=== PATIENT | female | born 1980 | race Caucasian/White ===

== ENCOUNTER 2018-01-25 17:11 | Inpatient (IN) | payer OTHER ==
[~2018-01-25] VITALS: Ht 162.6 cm; Wt 38.6 kg
--- NOTE | 2018-01-26 03:45 | NUR ---
INTAKE ASSESSMENT BP: 90/64, HR:94, RR:18, SpO2:96%, T:98.1 Pt is in stable condition and able to be admitted on the unit. Unit protocols regarding vital signs Q4H and medications were explained. Pt verbalized understanding. Will continue admission upon arrival on the unit.
[2018-01-26] MEDS ORDERED: TRAZ-182 PO (03:47)
[2018-01-26] MEDS ORDERED: CLON1TAB5 PO (03:47)
[2018-01-26] MEDS ORDERED: FAMO1TAB29 PO (03:47)
[2018-01-26] MEDS ORDERED: ACETAMINOPHEN 325 MG TABLET PO PRN (04:00)
[2018-01-26] MEDS ORDERED: ONDANSETRON 4 MG/2 ML VIAL IM PRN (04:00)
[2018-01-26] MEDS ORDERED: LORAZEPAM 1 MG TABLET PO PRN ×2 (04:00)
[2018-01-26] MEDS ORDERED: MAGNESIUM HYDROXIDE 30 ML LIQUID UDC PO PRN (04:00)
[2018-01-26] MEDS ORDERED: THIAMINE HCL 200 MG/2 ML VIAL IM ONE (04:00)
[2018-01-26] MEDS ORDERED: LOPERAMIDE HCL 2 MG CAPSULE PO PRN ×2 (04:00)
[2018-01-26] MEDS ORDERED: ONDANSETRON ODT 4 MG TAB.RAPDIS SL PRN (04:00)
[2018-01-26] MEDS ORDERED: diphenhydrAMINE 50 MG CAPSULE PO PRN (04:00)
[2018-01-26] MEDS ORDERED: MAG HYDROX/AL HYDROX/SIMETH 30 ML LIQUID UDC PO PRN (04:00)
[2018-01-26] MEDS ORDERED: LORAZEPAM 2 MG/1 ML VIAL IM PRN (04:00)
[2018-01-26] MEDS ORDERED: DICYCLOMINE HCL 20 MG TABLET PO PRN (04:00)
[2018-01-26 04:04] VITALS: BP 90/64
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
[2018-01-26 05:03] LABS: *URINE HCG, QUAL NEGATIVE (NEGATIVE)
[2018-01-26 05:11] LABS: BASOPHILS % (AUTO) 1.2 % (0.0-2.0); EOSINOPHILS % (AUTO) 0.8 % (0.0-7.0); HEMATOCRIT 39.8 % (31.2-41.9); HEMOGLOBIN 13.3 g/dL (10.9-14.3); LYMPHOCYTES # (AUTO) 1.1 K/uL (20.0-40.0); LYMPHOCYTES % (AUTO) 28.2 % (20.5-51.5); MEAN CORPUSCULAR HEMOGLOBIN 31.5 uug (24.7-32.8); MEAN CORPUSCULAR HGB CONC 34 g/dL (32.3-35.6); MEAN CORPUSCULAR VOLUME 93.9 fL (75.5-95.3); MONOCYTES # (AUTO) 0.5 K/uL (2.0-10.0); MONOCYTES % (AUTO) 12.6 % (0.0-11.0); NEUTROPHILS # (AUTO) 2.3 K/uL (1.8-8.9); NEUTROPHILS % (AUTO) 57.2 % (38.5-71.5); PLATELET COUNT (AUTO) 332 K/uL (179-408); RED BLOOD CELL COUNT(AUTO) 4.24 MIL/uL (3.63-4.92)
[2018-01-26 05:16] LABS: *AMPHETAMINE, URINE POSITIVE (NEGATIVE); *BARBITURATE, URINE NEGATIVE (NEGATIVE); *CANNABINOID, URINE NEGATIVE (NEGATIVE); *COCCAINE, URINE NEGATIVE (NEGATIVE); *OPIATE, URINE NEGATIVE (NEGATIVE); *PHENCYCLIDINE SCREEN,URINE NEGATIVE (NEGATIVE)
[2018-01-26 05:20] LABS: ETHANOL < 3 MG/DL (0-0)
[2018-01-26 05:29] LABS: ALANINE AMINOTRANSFERASE 28 U/L (14-59); ALKALINE PHOSPHATASE 44 U/L (50-136); AMYLASE 86 U/L (25-115); ASPARTATE AMINOTRANSFERASE 29 U/L (15-37); BILIRUBIN,TOTAL 0.5 mg/dL (0.2-1.0); CARBON DIOXIDE 30 mmol/L (21-32); CHLORIDE 98 mmol/L (98-107); CREATININE 0.8 mg/dL (0.6-1.3); GLUCOSE 87 mg/dL (74-106); LIPASE 180 U/L (73-393); MAGNESIUM 1.7 mg/dL (1.8-2.4); TOTAL PROTEIN, SERUM 7.7 g/dL (6.4-8.2); UREA NITROGEN, BLOOD 12 mg/dL (7-18)
[2018-01-26 05:37] LABS: THYROID STIMULATING HORMONE 3.316 mIU/mL (0.358-3.740)
[2018-01-26] MEDS ORDERED: POTASSIUM CHLORIDE 20 MEQ TAB.PRT.SR PO ONE (06:00)
[2018-01-26] MEDS ORDERED: MAGNESIUM OXIDE 400 MG TABLET PO ONE (06:00)
[2018-01-26] MEDS ORDERED: ESTR1PAT63 TD (06:21)
--- NOTE | 2018-01-26 07:00 | NUR ---
End of shift note Newly admitted patient Pt was noted with anxiety and depression. Pt remained in room for majority of remainder of shift except to go outside for fresh air on smoking patio. Pt remained cooperative and compliant with all aspects of treatment. Pt was not given any PRN medications during shift. Pt is on PRN medications until further evaluation from MD in AM. Respirations even and unlabored. Will endorse to day shift nurse.
--- NOTE | 2018-01-26 07:22 | NUR ---
BEGINNING OF SHIFT Patient endorsement report received from absorber operator nurse, all pertinent information was discussed. Patient admitted 01/26/2018, admitting Dx: etoh/bzo withdrawal. Patient is a 37 year old female with past medical history of: anxiety, insomnia, bulimia/anorexia, depression, and low estrogen. no history of seizure. Patients skin is intact. As per absorber operator patients magnesium and potassium were replaced. Patient did not sleep during absorber operator. Last CIWA score of: 9. Received no PRN medications. Patient received in bed with eyes closed, respirations are even and unlabored. Responsive to verbal stimuli. Patients safety measures observed and in place. Will educate regarding plan of care for the day and medication regimen. Call light with in reach. Will continue to monitor closely for s/sx of withdrawal.
[2018-01-26 08:04] VITALS: BP 100/75
[2018-01-26] MEDS: FOLIC ACID 1 MG TABLET PO SCH (08:17)
[2018-01-26] MEDS: THIAMINE HCL 100 MG TABLET PO SCH (08:17)
[2018-01-26] MEDS: MULTIVITAMINS,THERAPEUTIC TABLET PO SCH (08:17)
--- NOTE | 2018-01-26 08:17 | NUR ---
CIWA ASSESSMENT/PRN ATIVAN Patient awake, in bed with flat affect, depressed mood, noted hyperverbal and tearful. Encouraged to express feelings, provided with calming reassurance. Exhibiting the following s/sx of withdrawal: tremors, diaphoresis, anxiety, agitation, anhedonia, difficulty concentrating, generalized discomfort, increased emotional amplitude. Denies SI/HI. Patient was administered Ativan 1 mg PO for CIWA score of: 8. Will monitor effectiveness of medication. Safety measures are in place.
--- NOTE | 2018-01-26 09:17 | NUR ---
ATIVAN REASSESSMENT Patient reports feeling less anxious, current ciwa score of: 6. Will continue to monitor closely. Encouraged adequate PO fluid intake as tolerated.
--- NOTE | 2018-01-26 12:00 | NUR ---
MD COMMUNICATION due to patient noted with depressed mood, increased emotional amplitude with episodes of tearfulness and flat affect. Patient with PMH: Anxiety, depression, bulimia/anorexia. Patient placed on 1:1 sitter for safety precautions. Denies SI/HI. Will continue to monitor.
--- NOTE | 2018-01-26 12:23 | NUR ---
MD COMMUNICATION Patient seen and examined by MD, patient to begin a 6 day Phenobarbital taper. Will continue to monitor closely. First dose to start at 1300. Will continue to monitor closely.
[2018-01-26] MEDS ORDERED: 6 DAY PHENOBARBITAL TAPER -SERENITY PROTOCOL PO PRN (12:45)
[2018-01-26 13:00] VITALS: BP 106/71
--- NOTE | 2018-01-26 13:00 | NUR ---
CIWA ASSESSMENT Patient presented with the following s/sx of withdrawal: tremors, diaphoresis, increase anxiety, agitated, head fullness, anhedonia, decreased appetite, difficulty concentrating, emotional volatility, flushed face, generalized discomfort, hypervigilance, increased emotional amplitude, increased startle response, and sense of panic. Patient with CIWA score of: 17. First dose of Phenobarbital taper was administered as ordered, MD made aware of patients CIWA score. will continue to monitor.
[2018-01-26] MEDS: PHENOBARBITAL 60 MG TABLET PO SCH ×3 (13:16→23:07)
[2018-01-26] MEDS ORDERED: ESTRADIOL 0.05 MG TD SCH (14:00)
[2018-01-26 16:48] VITALS: BP 101/68
--- NOTE | 2018-01-26 16:51 | NUR ---
CIWA ASSESSMENT Patient continues to exhibit the following s/sx of withdrawal: tremors, diaphoresis, increase anxiety, agitated, head fullness, anhedonia, decreased appetite, difficulty concentrating, emotional volatility, flushed face, generalized discomfort, hypervigilance, increased emotional amplitude, increased startle response, and sense of panice. Patient with CIWA score of: 17, aware. Will continue to monitor.
--- NOTE | 2018-01-26 18:43 | NUR ---
END OF SHIFT Patient alert and oriented x4, vital signs WNL. Patient continues under close observation, admitting Dx: Etoh/BZO withdrawal. Started on a 6 day Phenobarbital taper for management of withdrawal symptoms. First dose administered during shift. Patient exhibited the following s/sx of withdrawal during shift: tremors, diaphoresis, increase anxiety, agitated, head fullness, anhedonia, decreased appetite, difficulty concentrating, emotional volatility, flushed face, generalized discomfort, hypervigilance, increased emotional amplitude, increased startle response, and sense of panic. Patient with last CIWA score of: 17. Patient under very close observation during and after meal times. Educated on importance of well balanced diet, with good verbal understanding. Continues with 1: 1 sitter for safety precautions. Patients appears unkempt, disheveled, with poor regards to hygiene. Inability to perform ADLs without prompting. Encouraged to self groom and maintain personal area. Noted with flat affect, depressed/anxious mood, noted hyperverbal and tearful. Encouraged to express feelings, provided with calming reassurance as needed. Encouraged patient to develop coping skills and utilization of non pharmacological interventions. Safety measures are in place. Call light with in reach.
--- NOTE | 2018-01-26 19:12 | NUR ---
Start of shift note Received report from day shift nurse. Pt is a 37 yo female, A+Ox4, presenting to [facility] for medically supervised withdrawal from ETOH and Benzos. Pt noted with flat affect, depressed demeanor, anxiety, restlessness, and agitation. Pt has HX of anxiety, depression, bulimia, anorexia, and low estrogen which will be monitored during shift. Pt is on 6 day Phenobarbital taper, tolerated well. Respirations even and unlabored. Will continue to monitor. Addendum: 01/27/18 at 0418 by ESME HAYES LVN Pt is on 1:1 observation for food monitoring and safety.
[2018-01-26 20:10] VITALS: BP 95/60
--- NOTE | 2018-01-26 20:10 | NUR ---
CIWA Assessment CIWA: 13. Pt noted with fine tremors, sweat on brow, anxiety, agitation, flat affect, and depressed demeanor. Respirations even and unlabored. Will continue to monitor.
[2018-01-26] MEDS: TRAZODONE 50 MG TABLET PO PRN (23:07)
--- NOTE | 2018-01-27 00:55 | NUR ---
V/S refused and CIWA deferred for sleep. Respirations even and unlabored. Will continue to monitor.
--- NOTE | 2018-01-27 04:18 | NUR ---
V/S refused and CIWA deferred for sleep. Respirations even and unlabored. Will continue to monitor.
--- NOTE | 2018-01-27 07:00 | NUR ---
End of shift note Pt was continuously noted with flat affect, depressed demeanor, restlessness, anxiety, and agitation. Pt remained in room for majority of shift except to get food from kitchen and to go to the smoking patio for fresh air. Pt remained cooperative and compliant with all aspects of treatment. Pt was not given any PRN medications during shift. Pt is on 6 day Phenobarbital taper, tolerated well. Pt slept for a total of 7 HRS. Last CIWA: 13 @2000. Respirations even and unlabored. Will endorse to day shift nurse.
--- NOTE | 2018-01-27 07:17 | NUR ---
BEGINNING OF SHIFT Patient received in bed with eyes closed, respirations are even and unlabored. Responsive to verbal stimuli. Endorsement report received from shift lab technician nurse, all pertinent information was discussed. Patient admitted 01/26/2018, admitting Dx: etoh/bzo withdrawal, patient with ongoing Phenobarbital taper as ordered. continues on 1:1 for safety precautions, to continue under close observation during meal times. Per shift lab technician patient still with episodes of agitation, depressed mood, and tearfulness, requires frequent redirection, will provide with calm and quiet environment. Last CIWA score of: 13. Received no PRN medications. Patients safety measures observed and in place. Will educate regarding plan of care for the day and medication regimen. Call light with in reach. Will continue to monitor closely for s/sx of withdrawal.
[2018-01-27 08:50] VITALS: BP 105/70
[2018-01-27] MEDS: FOLIC ACID 1 MG TABLET PO SCH (08:51)
[2018-01-27] MEDS: PHENOBARBITAL 60 MG TABLET PO SCH ×3 (08:51→21:29)
[2018-01-27] MEDS: MULTIVITAMINS,THERAPEUTIC TABLET PO SCH (08:51)
[2018-01-27] MEDS: THIAMINE HCL 100 MG TABLET PO SCH (08:51)
[2018-01-27] MEDS ORDERED: TUBERCULIN,PURIF.PROT.DERIV. 5 TU/0.1 ML TEST ID ONE (09:00)
--- NOTE | 2018-01-27 09:00 | NUR ---
CIWA ASSESSMENT Patient presented with the following s/sx of withdrawal: tremors, diaphoresis, increase anxiety, agitated, anhedonia, decreased appetite, difficulty concentrating, emotional volatility, flushed face, generalized discomfort, hypervigilance, and increased emotional amplitude. Patient with CIWA score of: 13. Continues on Phenobarbital taper as ordered, medications administered as ordered will continue to monitor.
[2018-01-27 11:08] LABS: HEPATITIS B SURFACE AG Negative (Negative)
--- NOTE | 2018-01-27 12:10 | NUR ---
CIWA ASSESSMENT continues to exhibit the following s/sx of withdrawal: tremors, diaphoresis, increase anxiety, agitated, anhedonia, decreased appetite, difficulty concentrating, emotional volatility, flushed face, generalized discomfort, hypervigilance, and increased emotional amplitude. Patient with CIWA score of: 13. will continue to monitor.
[2018-01-27 12:21] VITALS: BP 94/69
[2018-01-27 14:39] LABS: CREATININE 0.6 mg/dL (0.6-1.3); MAGNESIUM 1.6 mg/dL (1.8-2.4)
[2018-01-27 14:44] LABS: POTASSIUM 3.7 mmol/L (3.5-5.1)
[2018-01-27] MEDS ORDERED: MAGNESIUM OXIDE 400 MG TABLET PO ONE (15:00)
--- NOTE | 2018-01-27 16:28 | NUR ---
CIWA ASSESSMENT Still noted presenting with: increase anxiety, agitated, anhedonia, decreased appetite, difficulty concentrating, emotional volatility, flushed face, tremors, diaphoresis, generalized discomfort, hypervigilance, and increased emotional amplitude. Patient with CIWA score of: 13. will continue to monitor. Safety measures in place.
[2018-01-27 16:51] VITALS: BP 93/62
--- NOTE | 2018-01-27 18:58 | NUR ---
END OF SHIFT Patient continues under close observation, ongoing Phenobarbital taper as ordered, currently on day 2 of taper. Patient monitored closely during meal times, encouraged to increase PO meal intake and PO fluid intake as tolerated, still noted with poor appetite, and poor PO intake. Educated on importance of well balanced diet, with good verbal understanding. Continues with 1: 1 sitter for safety precautions. . Noted with flat affect, depressed/anxious mood, noted hyperverbal and tearful at times. Encouraged to express feelings, provided with calming reassurance as needed, denies SI/HI. Encouraged patient to develop coping skills and utilization of non pharmacological interventions. Patient exhibited the following s/sx of withdrawal during shift: tremors, diaphoresis, increase anxiety, agitated, anhedonia, decreased appetite, difficulty concentrating, emotional volatility, flushed face, generalized discomfort, hypervigilance, and increased emotional amplitude. Patient with last CIWA score of: 13. Encouraged to self groom and maintain personal area. Safety measures are in place. Call light with in reach. Patient endorsed to material checker nurse, all pertinent information discussed.
--- NOTE | 2018-01-27 19:30 | NUR ---
Start of Shift Endorsement received from day nurse. Pt admitted 01/26/18 for medically managed withdrawal/detox from ETOH and Benzodiazapines. Pt is listed as a full code on a recular diet with allergies to Cephalosporins, PCN and cldeine.Pt found in room, appears depressed, with flat affect, poor eye contact, speech is slow/soft. denies SI/HI, SA age 15 (TRAILER SECTIONS ASSEMBLER in room for safety and nutrition monitor), no hx of seizures. Pt weights 85lbs with hx of anorexia and bulemia. 50% of breakfast/dinner consumed only, nutrition encouraged and pt agreeing to eat sandwich, M&M's and vitamin water. No pain noted, c/o anxiety with tremors, diaphoresis, agitation, and "fullness" in head. Hypotensive with SBP 88 while in room. BP retaken and 96/63 with appropriate sized cuff.
[2018-01-27 20:00] VITALS: BP 84/56
--- NOTE | 2018-01-27 20:00 | NUR ---
Evening Rounds CIWA score upgraded to 14, aeb diaphoresis, anxiety, agitation, decreased appetite, depression, fatigue/malaise, head "fullness".
[2018-01-27 21:24] VITALS: BP 96/63
[2018-01-28] VITALS: BP 89/54
--- NOTE | 2018-01-28 | NUR ---
Midnight Rounds VS's obtained, SBP 89, HR 57. CIWA deferred r/t pt somnalence. Will continue to monitor and promptly attend to all s/sx's w/d or distress
[2018-01-28 04:00] VITALS: BP 93/60
--- NOTE | 2018-01-28 04:00 | NUR ---
0400 Rounds VS's obtained, SBP 93, HR 58. CIWA deferred r/t pt somnalence. Will continue to monitor and promptly attend to all s/sx's w/d or distress
--- NOTE | 2018-01-28 07:05 | NUR ---
Start of Shift: Patient is a 37 yr old female who was admitted to [facility] on 01/26/18 for a medically supervised withdrawal from ETOH and Benzodiazepines, she has been placed on a 6 day Phenobarbital taper and this is day 3. Currently she has just woke up and is crying in pain, states her hips hurt 6/10 pain, and desires pain relief, will bring her Motrin. She is on a 1:1 to monitor food intake as she ways 85lbs and is noted that she has Anorexia/Bulemia. Sitter in place at bedside. No PRN medications were requested or required on PM shift. She slept for 9 hours and last CIWA was 14. Will continue to follow MD plan of care and offer support as needed.
[2018-01-28] MEDS: IBUPROFEN 400 MG TABLET PO PRN ×2 (07:10→19:55)
--- NOTE | 2018-01-28 07:10 | NUR ---
PRN MOTRIN Motrin 400 MG PO given for complaints of bilateral hip pain 11/26 will reassess
--- NOTE | 2018-01-28 07:10 | NUR ---
End of Shift Endorsement given to day nurse. Pt admitted 01/26/18 for medically managed withdrawal/detox from ETOH and Benzodiazapines. Pt is listed as a full code on a regular diet with allergies to Cephalosporins, PCN and codeine. Pt with 1:1 SLIDE FASTENERS INSPECTOR sitter for pt safety and nutrition monitor Pt presented in evening with flat affect, depressed, soft voice, loose thoughts, only c/o anxiety. There were no PRN's given for shift. Last CIWA was 14 at 2000 hours Pt slept for 9 hours restlessly with frequent shifting, with 1092 mls intake and 3 voids. Full safety measures remain in place with bed locked and in lowest position, siderails up x 2 and frequent rounding.
[2018-01-28 08:00] VITALS: BP 94/61
[2018-01-28] MEDS: MULTIVITAMINS,THERAPEUTIC TABLET PO SCH ×2 (08:10→08:12)
[2018-01-28] MEDS: FOLIC ACID 1 MG TABLET PO SCH (08:10)
[2018-01-28] MEDS: THIAMINE HCL 100 MG TABLET PO SCH (08:10)
--- NOTE | 2018-01-28 08:10 | NUR ---
PRN Reassess Patient states she has 0/10 pain, Motrin 400 MG PO effective
[2018-01-28] MEDS: PHENOBARBITAL 60 MG TABLET PO SCH ×4 (08:11→21:02)
--- NOTE | 2018-01-28 08:30 | NUR ---
CIWA 14 Withdrawal symptoms present as increased anxiety, restlessness, headaches, joint pain, decreased appetite, enlarges pupils and diaphoresis. Motrin 400 MG PO given for hip pain along with scheduled Phenobarbital 30 MG PO
[2018-01-28 12:00] VITALS: BP 98/62
--- NOTE | 2018-01-28 12:00 | NUR ---
CIWA 15 Withdrawal symptoms include increased anxiety and agitation, decreased appetite, flat depressed affect, hypervigilance and sensitivity to light and sound. Scheduled Phenobarbital 30 MG PO given, no PRN medication requested but offered.
--- NOTE | 2018-01-28 13:18 | NUR ---
Client was prompted to attend twice daily group therapy sessions.
[2018-01-28 16:00] VITALS: BP 95/42
--- NOTE | 2018-01-28 16:10 | NUR ---
CIWA 14 Withdrawal symptoms present as increased anxiety, restlessness, joint pain, decreased appetite, lethargy and diaphoresis. No PRN medications requested or required though offered.
--- NOTE | 2018-01-28 18:43 | NUR ---
End Of Shift: Patient is a 37 yr old female who was admitted to [facility] on01/26/18 for a medically supervised withdrawal from ETOH ( Vodka) and benzodiazepines ( Klonopin ), she has been placed on 6 day Phenobarbital taper and this is day 3. PRN medications given on this shift : Motrin 400 MG PO for bilateral hip pain. Withdrawal symptoms today have included increased anxiety, depression, sad flat affect, joint pain, decreased appetite, difficulty concentrating and thinking clearly, emotional volatility and hypervigilance. She remains on a 1:1 for food monitoring for 1 hour after meals due to patients history of Anorexia and bulimia, she weighs 85lbs and has a BMI of 14.6. She has attended group this AM and is interacting appropriately with her peers and staff. She had a fluid intake of 2100 ML, 5 Voids and 0 BM. Continue to follow MD plan of care. Her last CIWA was 14 @ 1600. Endorsed to night shift manager.
--- NOTE | 2018-01-28 19:30 | NUR ---
Start of Shift Endorsement received from day nurse. Pt admitted 01/26/18 for medically managed withdrawal/detox from ETOH and Benzodiazapines, and on a regular diet. Pt is listed as a full code with allergies to PCN, codeine and Cephalosporins. Pt is on day 3 of a 6 day Phenobarbitol taper. Pt appears depressed and hypoactive with flat affect and soft voice. 1:1 CHARGE WEIGHER d/cd except for meals and 1 hour after. Pt appears undernourished, weight 85lbs on admission with hx of anorexia and bulimia, SA at age 15 (denies SI/HI at present). Pt disheveled with uncombed hair, circles under eyes. Pt did attend 1 group, 1 12 Step mtg during day. No c/os at present. Full safety measures remain in place. Will continue to monitor for shift, promptly attending to all s/sxs distress or w/d
--- NOTE | 2018-01-28 19:55 | NUR ---
PRN Med Motrin 600mg PO given for H/A, 10/26. Will continue to monitor, reassessing in 1 hour.
[2018-01-28 20:00] VITALS: BP 96/52
--- NOTE | 2018-01-28 20:00 | NUR ---
Evening Rounds VS obtained and stable. CIWA score upgraded to 15, aeb tremors, anxiety and agitation, anhedonia, fatigue and malaise, depression, H/A, diaphoresis, decreased appetite, difficulty concentrating.
--- NOTE | 2018-01-28 20:55 | NUR ---
PRN Reassessment Motrin 600mg PO given for H/A 5/10 1 hour prior. At present pt reports improvement in H/A to 2. Med effective.
[2018-01-29] VITALS: BP 92/57
--- NOTE | 2018-01-29 | NUR ---
Midnight Rounds VS's obtained, SBP 92, HR 60, CIWA deferred r/t pt somnalence. Will continue to monitor and promptly attend to all s/sx's w/d or distress.
[2018-01-29 04:00] VITALS: BP 89/57
--- NOTE | 2018-01-29 04:00 | NUR ---
0400 Rounds VS's obtained, SBP 89, HR 57, CIWA deferred r/t pt somnalence. Will continue to monitor and promptly attend to all s/sx's w/d or distress.
--- NOTE | 2018-01-29 07:10 | NUR ---
Start of Shift: Patient is a 37 yr old female who was admitted to [facility] on 01/26/18 for a medically supervised withdrawal from ETOH and Benzodiazepines, she has been placed on a 6 day Phenobarbital taper and this is day 4. Currently she just woke up and is complaining of high anxiety,will bring her Vistaril. She is on a 1:1 only during and after meals for 1 hour to monitor food intake as she weighs 85lbs and is noted that she has Anorexia/Bulemia. PRN Motrin was given on PM shift. She slept for 7 hours and last CIWA was 15. Will continue to follow MD plan of care and offer support as needed.
[2018-01-29] MEDS: HYDROXYZINE PAMOATE 25 MG CAPSULE PO PRN ×2 (07:12→07:31)
--- NOTE | 2018-01-29 07:13 | NUR ---
PRN Vistaril Complaints of high anxiety Vistaril 50 MG PO given will reassess
--- NOTE | 2018-01-29 07:14 | NUR ---
End of Shift Endorsement given to day nurse. Pt admitted 01/26/18 for medically managed withdrawal/detox from ETOH and Benzodiazapines, and on a regular diet. Pt is listed as a full code with allergies to PCN, codeine and Cephalosporins. Pt is on day 4 of a 6 day Phenobarbitol taper. Last CIWA 15 at 2000 hours. Pt presented with flat affect, soft speech, helpless, depressed, hypoactive, with loose thoughts. Disheveled with uncombed hair. Pt 85 lbs on admission with hx of anorexia and bulimia. 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 Shift uneventful, with Motrin being the only PRN given, for a H/A. Pt slept for 7 hours with 1387 mls intake and 3 voids. Full safety measure remain in place, with bed locked and in lowest position, siderails up x 2, call han within reach and frequent rounding.
[2018-01-29 08:00] VITALS: BP 95/59
--- NOTE | 2018-01-29 08:00 | NUR ---
CIWA 16 Patient presents with increased anxiety, feeling of racing heart, diaphoresis, difficulty thinking clearly, bilateral hand tremors and restlessness. PRN Vistaril 50 MG PO was given at 0715 and scheduled 30 MG PO Pheno was given at 0800
[2018-01-29] MEDS: FOLIC ACID 1 MG TABLET PO SCH (08:11)
[2018-01-29] MEDS: THIAMINE HCL 100 MG TABLET PO SCH (08:11)
[2018-01-29] MEDS: PHENOBARBITAL 60 MG TABLET PO SCH ×3 (08:11→20:20)
[2018-01-29] MEDS: MULTIVITAMINS,THERAPEUTIC TABLET PO SCH (08:13)
--- NOTE | 2018-01-29 08:15 | NUR ---
PRN Reassess Patient states her anxiety has decreased and she feels less like her heart is racing, will continue to monitor
[2018-01-29 12:00] VITALS: BP 99/64
--- NOTE | 2018-01-29 12:00 | NUR ---
CIWA 15 Patient complains of tooth pain, eye pain, increased anxiety, restlessness, hypervigilance, constipation/ bloated feeling and irritability. PRN Miralax and Vistaril have been given, pt will change her contacts and will offer Motrin
--- NOTE | 2018-01-29 13:35 | NUR ---
Therapist prompted client to attend twice daily group therapy sessions.
[2018-01-29] MEDS: IBUPROFEN 400 MG TABLET PO PRN (14:17)
--- NOTE | 2018-01-29 14:20 | NUR ---
PRN Motrin/Tylenol Motrin 400 MG PO and Tylenol 650 MG PO given for reports of headache/sinus pressure
[2018-01-29] MEDS: MIRALAX 17 GM POWD.PACK PO PRN (14:46)
--- NOTE | 2018-01-29 14:47 | NUR ---
PRN Miralax Given for reports of stomach discomfort/bloating/constipation.
--- NOTE | 2018-01-29 15:19 | NUR ---
PRN reassess Patient states that Sinus pressure has been relieved, Motrin and Tylenol effective. NO BM yet, will continue to monitor
--- NOTE | 2018-01-29 16:20 | NUR ---
CIWA 15 Patient complains of sinus pain, headache, increased anxiety, restlessness, hypervigilance, constipation/ bloated feeling and irritability. PRN Miralax , Vistaril, Motrin and Tylenol given today with positive effects.
[2018-01-29 16:30] VITALS: BP 101/73
--- NOTE | 2018-01-29 18:36 | NUR ---
End Of Shift: Patient is a 37 yr old female who was admitted to [facility] on01/26/18 for a medically supervised withdrawal from ETOH ( Vodka) and benzodiazepines ( Klonopin ), she has been placed on 6 day Phenobarbital taper and this is day 4. PRN medications given on this shift : Vistaril 50 MG PO for increased anxiety, Miralax for constipation , Motrin and Tylenol for headache/sinus pressure. Withdrawal symptoms today have included increased anxiety, sinus pressure, headache, lethargy, depression, sad flat affect, decreased appetite, difficulty concentrating and thinking clearly, emotional volatility and hypervigilance. She remains on a 1:1 for food monitoring for 1 hour after meals due to patients history of Anorexia and bulimia, she weighs 85lbs and has a BMI of 14.6. She has attended group this AM and PM and is interacting appropriately with her peers and staff. She had a fluid intake of 1500 ML, 4 Voids and 0 BM. Continue to follow MD plan of care. Her last CIWA was 16 @ 1600. Endorsed to night clerk.
--- NOTE | 2018-01-29 19:30 | NUR ---
Start of Shift Patient Received. Per endorsement, patient continues on a modified Phenobarbital taper. She remains on 1:1 only during and post meal for food intake. Patient received PRN Vistaril, Motrin, and Tylenol with medications noted to be effective. She also received PRN Miralax with no relief noted. Will continue to monitor for relief. Last noted CIWA 16. All needs attended to promptly. Will continue to monitor.
[2018-01-29 20:11] VITALS: BP 106/64
[2018-01-29] MEDS: TRAZODONE 50 MG TABLET PO PRN (20:20)
--- NOTE | 2018-01-29 20:20 | NUR ---
PRN Medication Administration Patient is verbalizing inability of falling asleep as well as feelings of constipation. She states "I feel so bloated like I have to use the bathroom but I cant." PRN MOM and Trazodone administered. Will continue to monitor.
--- NOTE | 2018-01-29 21:20 | NUR ---
PRN Medication Reassessment Patient is noted in bed with eyes closed. Breathing even and non labored. no signs of restlessness or discomfort noted. No facial grimacing noted. PRN Trazodone noted to be effective. Will continue to monitor for effectiveness of Miralax.
[2018-01-30 00:06] VITALS: BP 98/71
[2018-01-30 04:14] VITALS: BP 96/52
--- NOTE | 2018-01-30 07:07 | NUR ---
End of Shift Patient is noted in bed with eyes closed. Breathing even and non labored. Patient continues on a modified Phenobarbital taper. She remains on 1:1 only during and post meal for food intake. Patient received PRN Trazodone with medication noted to be effective. She was noted to sleep a total of 10 hours. Patient also received PRN MOM with no verbalized relief. Will endorse to morning shift to continue to monitor. Last noted CIWA 13. All needs attended to promptly. Will endorse to continue to monitor.
[2018-01-30 08:00] VITALS: BP 95/65
[2018-01-30] MEDS: FOLIC ACID 1 MG TABLET PO SCH (08:15)
[2018-01-30] MEDS: PHENOBARBITAL 60 MG TABLET PO SCH ×2 (08:15→21:23)
[2018-01-30] MEDS: MIRALAX 17 GM POWD.PACK PO PRN (08:17)
[2018-01-30] MEDS: THIAMINE HCL 100 MG TABLET PO SCH (08:17)
[2018-01-30] MEDS: MULTIVITAMINS,THERAPEUTIC TABLET PO SCH (08:17)
--- NOTE | 2018-01-30 09:34 | NUR ---
START OF SHIFT: Received Pt A/O X 4. She presents with anxious mood and congruent affect. Poor eye contact noted. Fine tremors noted to hands.She c/o anxiety,restlessness,irritability and constipation. Phenobarbital taper in progress. BRET 6 She continues on 1:1 after meals r/t E.D. Encouraged group attendance to improve coping skills and prevent relapse Addendum: 01/30/18 at 0949 by MARILY TUCKER RN start of shift actual 0810. She c/o constipation. PRN Miralax given.
[2018-01-30 12:00] VITALS: BP 95/60
[2018-01-30 16:00] VITALS: BP 103/66
--- NOTE | 2018-01-30 16:43 | NUR ---
Therapist prompted client to attend twice daily group therapy sessions.
[2018-01-30 17:47] LABS: BILIRUBIN,TOTAL 0.3 mg/dL (0.2-1.0); CREATININE 0.7 mg/dL (0.6-1.3); MAGNESIUM 1.8 mg/dL (1.8-2.4); POTASSIUM 3.6 mmol/L (3.5-5.1)
--- NOTE | 2018-01-30 18:44 | NUR ---
END OF SHIFT: Pt continues on Phenobarbital taper to manage s/s of w/d which include anxiety,fine tremors ,intermittent sweats and restlessness. Last CIWA 10. She was compliant with increased fluids and group attendance. She states the detox medications are effective. Will pass shift report to oncoming night nurse.
--- NOTE | 2018-01-30 19:45 | NUR ---
Start of Shift Patient Received. Per endorsement, patient continues on a modified Phenobarbital taper. She continues on 1:1 for monitoring during and post meals for food intake. Patient received PRN Miralax for increased feelings of constipation with no relief noted. Last noted CIWA 10. Upon rounds patient was noted to be emotional and with increased anxiety. Encourage patient to verbalize feelings and Offered support. Patient was able to verbalize I think I just was freaking out but Im ok. I feel ok now. Encouraged patient to continue with group and social activities, patient verbalized understanding. She was noted to go outside with peers for social activities. All needs attended to promptly. Will continue plan of care as ordered.
[2018-01-30 20:35] VITALS: BP 106/76
[2018-01-30] MEDS: TRAZODONE 50 MG TABLET PO PRN (21:23)
[2018-01-31 00:02] VITALS: BP 97/52
[2018-01-31 04:26] VITALS: BP 96/51
--- NOTE | 2018-01-31 07:05 | NUR ---
End of Shift Patient is noted in bed with her eyes closed. Breathing even and non labored. No signs of restlessness or discomfort noted. Patient continues on a modified Phenobarbital taper. She continues on 1:1 for monitoring for food intake during and post meals. Patient was noted to be compliant with group and social activities. She received PRN Trazodone with medication noted to be effective. Patient noted to sleep a total of 8 hours. All needs attended to promptly. Will endorse to continue plan of care as ordered.
[2018-01-31 08:00] VITALS: BP 90/60
--- NOTE | 2018-01-31 08:05 | NUR ---
START OF SHIFT: Received Pt A/O X 4. She presents with anxious mood and congruent affect. She c/o anxiety and restlessness. Phenobarbital taper in progress. CIWA 10. She states she is eating well. She continues on 1:1 after meals r/t E.D. Encouraged group attendance to improve coping skills and prevent relapse. Encouraged increased fluids for hydration and increased fiber in diet for regularity.Will continue to monitor and offer support.
[2018-01-31] MEDS: MULTIVITAMINS,THERAPEUTIC TABLET PO SCH (08:53)
[2018-01-31] MEDS: THIAMINE HCL 100 MG TABLET PO SCH (08:53)
[2018-01-31] MEDS: FOLIC ACID 1 MG TABLET PO SCH (08:53)
[2018-01-31] MEDS ORDERED: PHENOBARBITAL 60 MG TABLET PO SCH (09:00)
[2018-01-31 12:00] VITALS: BP 99/65
--- NOTE | 2018-01-31 12:15 | NUR ---
ALEXWA 8. Pt c/o anxiety,restlessness and "a foggy head". She attends groups and interacts with peers.
--- NOTE | 2018-01-31 13:18 | NUR ---
Therapist prompted client to attend twice daily group therapy sessions and recreational therapy sessions.
[2018-01-31 16:00] VITALS: BP 108/72
--- NOTE | 2018-01-31 18:38 | NUR ---
END OF SHIFT: Pt completed Phenobarbital taper to manage s/s of w/d which include anxiety and restlessness. Last CIWA 6 . She was compliant with increased fluids and group attendance. She is scheduled for discharge tomorrow in AM. She reports some anxiety about moving on to RTC but states she is enthusiastic. 1:1 post meals in progress. She has a fair appetite. Will pass shift report to oncoming night nurse.
--- NOTE | 2018-01-31 19:12 | NUR ---
Start of shift note Received report from day shift nurse. Pt is a 37 yo female, A+Ox4, presenting to [facility] for medically supervised ETOH/Benzo withdrawal. Pt has HX of anxiety, depression, bulimia, and anorexia which will be monitored during shift. Pt has completed 6 day Phenobarbital taper, tolerated well, and is due for discharge tomorrow. Respirations even and unlabored. Will continue to monitor.
[2018-01-31 20:05] VITALS: BP 98/66
--- NOTE | 2018-01-31 20:05 | NUR ---
CIWA Assessment CIWA: 5. Pt noted with fine tremors, anxiety, and agitation. Respirations even and unlabored. Will continue to monitor.
[2018-01-31] MEDS ORDERED: HYDR-3895 PO (20:39)
[2018-01-31] MEDS ORDERED: IBUP-1953 PO (20:39)
[2018-01-31] MEDS: HYDROXYZINE PAMOATE 25 MG CAPSULE PO PRN (21:14)
--- NOTE | 2018-01-31 21:14 | NUR ---
PRN Vistaril Pt c/o anxiety and requested for PRN Vistaril. Medication given and tolerated well. Will reassess within 1 HR. Will continue to monitor.
--- NOTE | 2018-01-31 22:10 | NUR ---
PRN Vistaril Reassessment Medication effective. Pt expresses reduction in anxiety. No s/s of ASE noted at this time. Respirations even and unlabored. Will continue to monitor.
--- NOTE | 2018-02-01 00:29 | NUR ---
V/S refused and CIWA deferred for sleep. Respirations even and unlabored. Will continue to monitor.
[2018-02-01] MEDS: IBUPROFEN 400 MG TABLET PO PRN (02:50)
--- NOTE | 2018-02-01 02:53 | NUR ---
PRN Motrin Pt c/o hip pain 5/10 and requested for PRN Motrin. Medication given and tolerated well. Will reassess within 1 HR. Will continue to monitor.
--- NOTE | 2018-02-01 03:50 | NUR ---
PRN Motrin Reassessment Medication effective. Pt expresses reduction of hip pain to 2/10. No s/s of ASE noted at this time. Respirations even and unlabored. Will continue to monitor.
--- NOTE | 2018-02-01 04:50 | NUR ---
V/S refused and CIWA deferred for sleep. Respirations even and unlabored. Will continue to monitor.
--- NOTE | 2018-02-01 06:59 | NUR ---
End of shift note Pt was continuously noted with restlessness, anxiety, and agitation. Pt remained in room for majority of shift except to get food from kitchen and to go out on smoking patio for fresh air. Pt remained cooperative and compliant with all aspects of treatment. Pt was given PRN Vistaril @4 and PRN Motrin @0250. Pt has completed 6 day Phenobarbital taper, tolerated well, and is due for discharge today. Pt slept for a total of 9 HRS. Last CIWA: 5 @1999. Respirations even and unlabored. Will endorse to day shift nurse.
--- NOTE | 2018-02-01 07:27 | NUR ---
BEGINNING OF SHIFT Endorsement report received from retail shift supervisor nurse, all pertinent information was discussed. Patient received in bed with eyes closed, respirations are even and unlabored. Responsive to verbal stimuli. Patient admitted 01/26/2018, admitting Dx: etoh/bzo withdrawal, patient completed Phenobarbital taper as ordered, and is scheduled to be discharged this morning. Noted self motivated towards sobriety. Last CIWA score of: 5. Received PRN: Vistaril, and Motrin during retail shift supervisor, mas per night [id number] medications were effective. Patients safety measures observed and in place. Will educate regarding plan of care for the day and medication regimen, will also educate regarding discharge instructions. Call light with in reach. Will continue to monitor.
[2018-02-01 08:04] VITALS: BP 100/68
[2018-02-01] MEDS: FOLIC ACID 1 MG TABLET PO SCH (08:55)
[2018-02-01] MEDS: THIAMINE HCL 100 MG TABLET PO SCH (08:55)
[2018-02-01] MEDS: MULTIVITAMINS,THERAPEUTIC TABLET PO SCH (08:57)
--- NOTE | 2018-02-01 09:31 | NUR ---
DISCHARGE Patient discharged off the unit in stable condition, in no apparent acute distress at 0931. Prior to discharge patient was provided with education and teaching regarding all discharge instructions, with good verbal understanding. Patient completed a 6 day phenobarbital taper as ordered. last ciwa score of: 5, vital signs WNL. Patient discharged to breathe, noted self motivated towards sobriety. Administered all scheduled due medications as ordered. Patients discharge instructions, home medications and prescriptions were placed in patients personal duffel bag. Patient off the unit ins table condition at 0931.
== END 2018-02-01 09:31 | disposition other institution (70) | DRG 895 ==
LOC: SRC 01-26 02:32
PROVIDERS: ADMIT Family Medicine Addiction Medicine; ATTEND Family Medicine Addiction Medicine
PROC: HZ2ZZZZ Detoxification Services for Substance Abuse Treatment (ICD-10-PCS; principal; 2018-01-26)
PROC: HZ41ZZZ Group Counseling for Substance Abuse Treatment, Behavioral (ICD-10-PCS; 2018-01-27)
PROC: HZ31ZZZ Individual Counseling for Substance Abuse Treatment, Behavioral (ICD-10-PCS; 2018-01-30)
DX: F13.230 Sedative, hypnotic or anxiolytic dependence with withdrawal, uncomplicated (principal); F10.230 Alcohol dependence with withdrawal, uncomplicated; Y90.9 Presence of alcohol in blood, level not specified; F90.9 Attention-deficit hyperactivity disorder, unspecified type; Z91.5 Personal history of self-harm; F50.9 Eating disorder, unspecified; E87.6 Hypokalemia; E83.42 Hypomagnesemia; F15.10 Other stimulant abuse, uncomplicated; F41.9 Anxiety disorder, unspecified
CPT/HCPCS: 36415; 70030-TC; 80307; 80324; 80346; 83690; 83735; 84443; 84703; 85025; 86580; 86592; 86705; 86803; 87340; 87806; A4663; G0480; J3411; J8499